=== PATIENT | female | born 1995 | race Caucasian/White ===

== ENCOUNTER 2017-09-06 08:26 | Emergency (ER) | payer OTHER ==
[2017-09-06 08:46] VITALS: BP 125/89; PULSE 85; TEMP 98.2; BMI 24.7
--- NOTE | 2017-09-06 08:46 | PDOC ---
History of Present Illness - General Chief Complaint: Sore Throat Stated Complaint: SORE THROAT Time Seen by Provider: 09/06/17 08:28 History Source: Patient Exam Limitations: No Limitations - History of Present Illness Initial Comments: 09/06/17 08:41 21 y/o female states she noticed a cut in the back of her throat this morning. Denies bleeding, trauma or fever. Mild pain. No other complaint for neck pain, SOB or chest pain. Denies excessive screaming or trauma to the throat yesterday. Awoke this morning with pain. Severity: mild Past History - Past Medical History Allergies/Adverse Reactions: Allergies Allergy/AdvReac Type Severity Reaction Status Date / Time No Known Allergies Allergy Verified 09/06/17 08:26 Home Medications: Ambulatory Orders NK [No Known Home Medication] 09/06/17 Other medical history: DENIES - Immunization History Immunization Up to Date: Yes - Suicide/Smoking/Psychosocial Hx Smoking History: Current every day smoker Have you smoked in the past 12 months: Yes Number of Cigarettes Smoked Daily: 0 Information on smoking cessation initiated: Yes 'Breaking Loose' booklet given: 09/06/17 Hx Alcohol Use: No Drug/Substance Use Hx: No Substance Use Type: None Review of Systems - Review of Systems Able to Perform ROS?: Yes Is the patient limited Gabonese proficient: No Constitutional: No: Chills, Fever HEENTM: Yes: Throat Pain. No: Eye Pain Respiratory: No: Cough, Shortness of Breath Cardiac (ROS): No: Chest Pain All Other Systems: Reviewed and Negative *Physical Exam - Vital Signs Last Vital Signs Temp Pulse Resp BP Pulse Ox 98.2 F 85 20 125/89 98 09/06/17 08:26 09/06/17 08:26 09/06/17 08:26 09/06/17 08:26 09/06/17 08:26 - Physical Exam General Appearance: Yes: Nourished, Appropriately Dressed. No: Apparent Distress HEENT: positive: EOMI, JUVENTINO, Normal ENT Inspection, Normal Voice. negative: Pharynx Normal (small crypt in left tonsil appears more prominent, no bleeding or peroration of left tonsil noted, no erythema or exudates or peritonsillar abscess noted, uvula midline), Muffled/Hoarse voice, Pharyngeal Erythema, Tonsillar Exudate, Sinus Tenderness Neck: positive: Trachea midline, Normal Thyroid, Supple. negative: Tender, Rigid Respiratory/Chest: positive: Lungs Clear, Normal Breath Sounds Cardiovascular: positive: Regular Rhythm, Regular Rate, S1, S2 Vascular Pulses: Femoral (R): 4+, Femoral (L): 4+, Carotid (R): 4+, Carotid (L) : 4+, Dorsalis-Pedis (R): 4+, Doralis-Pedis (L): 4+ Musculoskeletal: positive: Normal Inspection Extremity: positive: Normal Capillary Refill, Normal Inspection, Normal Range of Motion Integumentary: positive: Normal Color, Dry, Warm Neurologic: positive: gear changer II-XII NML intact, Fully Oriented, Alert, Normal Mood/ Affect, Normal Response, Motor Strength / ED Treatment Course - ADDITIONAL ORDERS Additional order review: 09/06/17 08:44 Pt appears to have a mild laceration/vs prominent crypt of tonsil Cold liquids next 24 hr Tylenol, rest Follow up with ENT *DC/Admit/Observation/Transfer Diagnosis at time of Disposition: Throat pain - Discharge Dispostion Disposition: HOME Condition at time of disposition: Good Admit: No - Patient Instructions Printed Discharge Instructions: DI for Pharyngitis/Tonsillopharyngitis -- Adult Additional Instructions: Cold liquids next 24 hrs Tylenol, rest Follow up with ENT next 24-48 hrs If worsen return to ER
== END 2017-09-06 09:06 | disposition home or self-care (01) ==
LOC: FER 08:26
DX: R07.0 Pain in throat (principal); F17.210 Nicotine dependence, cigarettes, uncomplicated
CPT/HCPCS: 99281-25